=== PATIENT | male | born 1995 | race Caucasian/White ===

== ENCOUNTER 2016-06-18 19:21 | Emergency (ER) | payer MEDICAID ==
[~2016-06-18] VITALS: Ht 167.6 cm; Wt 72.6 kg
[~2016-06-18 19:21] MED LIST: CEPHALEXIN MON500 MG PO; NOMEDS *
[2016-06-18] MEDS ORDERED: KEFLEX 500MG.500 MG PO (20:52)
--- NOTE | 2016-06-18 20:53 | Emergency Room Report ---
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 N Clinical Suspician of Infection? N Mental Status: 1 - Regular (Normal Baseline) Sepsis Risk:Low Sepsis Risk Have you (or family members/close friends) recently traveled outside the [place]? N If Yes, where/when: Have you had exposure to infectious disease within the past month? N TB? Other? Specify: Source patient, RN notes reviewed, family, old records Exam Limitations no limitations Comment nail broke off with missle injury to lt forearm this afternoon - local soreness Cardiac Chest Pain Chest pain indicative of cardiac No Timing/Duration this evening Severity moderate ALLERGIES Coded Allergies: NO KNOWN ALLERGIES (02/03/12) Home Medications Reported Medications No Home Medications (NO HOME MEDICATIONS) 1 X * ONCE History Medical History General CAD? No Angina: No DC: No Hypertension? No Hyperlipidemia? No CHF? No DVT? No PE? No COPD? No Asthma? No Anemia? No GERD? No Gastric ulcers? No GI Bleed? No Hernia? No Thyroid Problems? No Hypothyroidism? No CVA? No Seizures? No Diabetes? No Renal Insuffiency? No End Stage Renal Disease? No UTI? No Stones? No BPH? No GB Disease: No Nephritic Syndrome? No Asplenia? No Hepatitis? No Sickle Cell Disease? No Arthritis? No Migraines? No Cataracts? No Glaucoma? No MRSA? No HIV? No TB? No Anxiety? No Depression? No Cancer? No More? No Immunization Hx DT/Tetanus 1-4 YRS Surgical Hx Previous Surgery?Y DOG BITE SURGERY ON RT ELBOW X 2 Social History Smoking Hx Smoker: Never Smoker Tobacco: No Alcohol Alcohol: No Drugs none Review of Systems All Other Systems Reviewed and Negative Constitutional denies fever Eyes denies drainage ENT denies: ear pain, epistaxis, throat pain. Respiratory denies cough, denies shortness of breath, denies wheezing Cardiovascular denies chest pain, denies syncope Gastrointestinal denies abdominal pain, denies diarrhea, denies vomiting Genitourinary denies: dysuria, frequency, hesitancy, hematuria. Musculoskeletal denies back pain, denies joint pain, denies joint swelling, denies neck pain Skin see HPI, denies rash, other Psychiatric/Neurological denies headache Physical Exam Vital Signs Vital Signs Date Time Temp Pulse Resp B/P Pulse O2 O2 Flow FiO2 Ox Delivery Rate 06/18 1927 98.6 95 16 144/81 97 - WBC >12,000 or <4,000 or 10% bands? 2 or more SIRS Criteria Met? B/P:144/81 MAP:102 Creatinine >2.0? UA output<0.5ml/kg/hr for 2 hrs? Platelet count >100,000? Lactate >2.0mmol/1? INR >1.2 or PTT > than 60 sec? Evidence of Organ Dysfunction? Provider documented clinical suspician of infection? N Sepsis Criteria Count: 1 Sepsis Risk: Low Sepsis Risk General Appearance no apparent distress Eye Exam - bilateral eye PERRL, bilateral eye EOMI Ear, Nose, Throat normal ENT inspection Neck supple Respiratory Status No: respiratory distress. 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 No Results/Orders Orders Procedure Date/time Status FOREARM-LT 06/18 1933 Active XRAY/CT/US XRAY/CT/US XRAY forearm XR interpretation by reviewed by me Xray Results abnormal (pos fb ) Departure Departure Time of Disposition 2046 Disposition DC Home or Self Care(routine) Clinical Impression Primary Impression: Foreign body in forearm Qualifiers: Encounter type: initial encounter Laterality: left Qualified Code: S50.852A - Superficial foreign body of left forearm, initial encounter Condition STABLE Referrals Memo CANNON,Niles Bazan (Family) Patient Instructions DI for Puncture Wound Additional Instructions keep clean and see pcp as needed Discharge Counseling Counseled pt/family regarding diagnosis, test results, medications/RX, follow up needs Prescriptions Current Visit Scripts CEPHALEXIN (Keflex 500MG Capsule) 500 MG PO Q8H #30 [facility] ED Critical Care Critical Care No at [id number]
[2016-06-18 20:57] VITALS: BP 130/64
--- NOTE | 2016-06-19 07:54 | RADIOLOGY REPORT PS360 ---
FOREARM-LT CLINICAL INDICATION: Pain following injury with possible foreign body POSSIBLE FB ORDERING PHYSICIAN: PATIENT AGE: 21 years COMPARISON: None FINDINGS: A small metallic density is present projecting over the proximal to mid forearm anteriorly within the soft tissues measuring approximately 5 mm consistent with a foreign body. No bony abnormalities. IMPRESSION: Positive for metallic foreign body
== END 2016-06-18 20:58 | disposition home or self-care (01) ==
LOC: ER 19:21
DX: S50.852A Superficial foreign body of left forearm, initial encounter (principal); W45.8XXA Other foreign body or object entering through skin, initial encounter; Y93.9 Activity, unspecified; Y92.89 Other specified places as the place of occurrence of the external cause

== ENCOUNTER 2016-12-25 11:00 | Emergency (ER) | payer MEDICAID ==
[~2016-12-25] VITALS: Ht 167.6 cm; Wt 77.2 kg
[~2016-12-25 11:00] MED LIST changes: +KEFLEX 500MG.500 MG PO
[2016-12-25 11:28] LABS: URINE BILIRUBIN - DIPSTICK NEGATIVE (NEG)
[2016-12-25 11:29] LABS: URINE BLOOD NEGATIVE (NEG)
--- NOTE | 2016-12-25 11:29 | Urgent Treatment Center Report ---
See Addendum History of Present Issue Date/Time Seen by Provider 12/25/16 1129 Visit Reason Pt arrived:Walked Presenting Problem:PT STATES KIDNEY PAIN WHEN HE TAKES A DEEP BREATH FOR PAST WEEK. DENIES INJURY. STATES FREQUENT URINATION. STATES SYMPTOMS ARE WORSE IN THE MORNINGS Location if Accident: Onset of symptoms date/time:/ or onset unknown for:MEDICAL HX UNKNOWN Have you (or family members/close friends) recently traveled outside the [place]? N If Yes, where/when: Have you had exposure to infectious disease within the past month? TB? Other? Specify: Here alone c/o "my kidneys hurt". C/o mid to low back pain, bilateral, x approx one week. "like my kidneys are in a pinch". Worse first thing in the morning, pain 10/10, sharp, worse with deep breaths. "somewhat" improves after first morning urination but gets worse after drinking "alot of liquids" throughout the day. Pain currently 5/10 and not as bad with deep breaths. Unchanged with ROM. Not keeping pt from daily workouts. Unchanged with ibuprofen. Last dose 2 days ago. Denies dysuria, change urine color or smell, urinary frequency, difficulty urinating. No known injury/trauma. Adament this pain is "nothing like a back strain". Denies abdominal pain. Does take preworkout but this isn't knew and never had this pain before. Denies cough, SOA, wheezing. Source patient Exam Limitations no limitations ALLERGIES Coded Allergies: No Known Allergies (12/25/16) Home Medications Reported Medications No Home Medications (NO HOME MEDICATIONS) 1 X * ONCE History Medical History General CAD? No Angina: No [place]: No Hypertension? No Hyperlipidemia? No CHF? No DVT? No PE? No COPD? No Asthma? No Anemia? No GERD? No Gastric ulcers? No GI Bleed? No Hernia? No Thyroid Problems? No Hypothyroidism? No CVA? No Seizures? No Diabetes? No Renal Insuffiency? No UTI? No Stones? No BPH? No GB Disease: No Nephritic Syndrome? No Asplenia? No Hepatitis? No Sickle Cell Disease? No Arthritis? No Migraines? No Cataracts? No Glaucoma? No MRSA? No HIV? No TB? No Anxiety? No Depression? No Cancer? No More? No Immunization HX DT/Tetanus 1-4 YRS Surgical Hx Previous Surgery?Y DOG BITE SURGERY ON RT ELBOW X 2 Social History Smoking Hx Smoker: Never Smoker Tobacco: Yes Type Snuff Alcohol Alcohol: No Review of Systems All Other Systems Reviewed and Negative Constitutional denies chills, denies fever, denies malaise Respiratory see HPI Cardiovascular denies chest pain, denies palpitations Gastrointestinal denies abdominal pain, denies diarrhea, denies nausea, denies vomiting Genitourinary denies: discharge, hesitancy, hematuria, pain. 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 No: respiratory distress, use of accessory muscles, pain on inspiration, pain on expiration, productive cough, non productive cough. Lung Sounds anterior: lungs clear. posterior: lungs clear. bilateral: lungs clear. Cardiovascular regular rate/rhythm, no peripheral edema, no murmur Gastrointestinal normal bowel sounds, non tender, soft Back normal inspection, no vertebral tenderness, bowel/bladder continent, gait normal, CVA tenderness (R), CVA tenderness (L), tenderness bilateral lower thoracic/lumbar regions Extremities non-tender, normal range of motion, normal inspection Strength 5 Lower Ext (L), 5 Lower Ext (R) Neurologic alert, no motor/sensory deficits, oriented x 3 Mental status normal mood/affect Skin normal color, warm/dry Medical Decision Making LABS/Meds/Orders Pt receiving controlled substance in ED? No Results/Orders Laboratory Tests 12/25/16 1205: Sodium 142, Potassium 4.5, Chloride 103, Carbon Dioxide 31, BUN 16, Creatinine 1.1, Estimated Creat Clear 117, Estimated GFR (MDRD) 85, Glucose 72 L, Calcium 9.2, WBC 4.2 L, RBC 4.47 L, Hgb 14.7, Hct 41.8 L, MCV 93.5, RDW 12.2, Plt Count 145, MPV 9.1, Gran % 62.4, Gran # 2.6, Lymphocytes % 29.1, Monocytes % 7.1 , Eosinophils % 1.0, Basophils % 0.5, Lymphocytes # 1.2, Monocytes # 0.3, Eosinophils # 0.0, Basophils # 0.0, PUBS MCHC 35.1, MCH 32.8 H 12/25/16 1126: Urine Color YELLOW, Urine Appearance Clear, Urine pH 5.5, Ur Specific [place] 1.015, Urine Protein NEGATIVE, Urine Ketones NEGATIVE, Urine Blood NEGATIVE, Urine Nitrate NEGATIVE, Urine Bilirubin NEGATIVE, Urine Urobilinogen 0.2, Ur Leukocyte Esterase NEGATIVE, Urine Glucose NEGATIVE Current Medication Orders Sig/Shawna Start time Last Medication Dose Route Stop Time Status Admin Ketorolac 0 .STK-MED ONE 12/25 1209 DC Tromethamine .ROUTE Ketorolac 60 MG ONCE ONE 12/25 1200 DC 12/25 Tromethamine IM 12/25 1201 1212 Orders Procedure Date/time Status SED RATE 12/25 1333 Active C-REACTIVE PROTEIN 12/25 1333 Active CHEST(2 VIEWS-NOT PORTABLE) 12/25 1152 Active CBC WITH AUTO DIFF 12/25 1152 Complete BASIC METABOLIC PROFILE 12/25 1152 Complete [facility] 12/25 1126 Complete XRAY/CT/US XRAY/CT/US XRAY chest XR interpretation by reviewed by me (w/ IVAN Mulligan MD) Xray Results normal/NAD Consult MD Physician Consult Consult/PCP Dr. Hampton, IVAN CANNON Time Called 1318 Reason Pt. Condition Comments With a patient. Will have to return call. 1330 Dr. Hampton returned call. Discussed HPI, exam, results, relief with toradol. Would like CRP and sed rate added to labs. pt not to wait for results. They will FU on results in clinic tomorrow. Pt to call his office and follow up there tomorrow. Progress [facility] Progress Notes Date 12/25/16 Time 1310 Comment Pain "much improved" with toradol. Pt had only been taking ibuprofen 400mg "here and there" and last dose [address] Hampton or Maricarmen. Aware I will touch base with their office prior to discharge. Departure Departure Time of Disposition 1334 Disposition DC Home or Self Care(routine) Clinical Impression Primary Impression: Back pain Qualifiers: Back pain location: back pain in other location Chronicity: acute Qualified Code: M54.9 - Dorsalgia, unspecified Condition STABLE Referrals Memo CANNON,Niles Bazan (Family) Call office today and schedule follow up appointment for tomorrow. Let them know you were seen here, I spoke to Dr. Hampton and he wants you in the office tomorrow. Patient Instructions DI for Thoracic Back Pain Additional Instructions * Ibuprofen 600-800mg every 6 hours with meal as needed for pain/inflammation. * Remember you had a toradol shot in clinic * No additional anti-inflammatories like motrin, aleve, advil with the above amount of ibuprofen. You CAN still take Tylenol every 4 hours as needed if you need something more for pain. * Urinate often * Be sure to follow up with Dr. Hampton's office tomorrow on CRP and sed rate results Discharge Counseling Counseled pt/family regarding diagnosis, test results, medications/RX, home care, follow up needs at [phone]
[2016-12-25 12:14] LABS: HEMOGLOBIN 14.7 g/dL (14.1-18.0); LYMPH # 1.2 K/mm3 (0.7-4.5); LYMPH % 29.1 % (10-50)
[2016-12-25 13:52] VITALS: BP 122/60
--- NOTE | 2016-12-25 14:40 | RADIOLOGY REPORT PS360 ---
CHEST(2 VIEWS-NOT PORTABLE) HISTORY: mid to low back pain with breathing, no SOA, nonsmoker ORDERING PHYSICIAN: KIARA MARES APRN PATIENT AGE: 21 years COMPARISON: 01/12/2013 FINDINGS: The cardiomediastinal silhouette and pulmonary vascularity are within normal limits. The lungs are clear without infiltrates, suspicious nodules, or pleural effusions. No acute bony abnormalities. IMPRESSION: Negative chest, no acute finding
== END 2016-12-25 13:55 | disposition home or self-care (01) ==
LOC: UTC 11:00
PROVIDERS: Nurse Practitioner Family
DX: M54.9 Dorsalgia, unspecified (principal)